=== PATIENT | male | born 1990 | race Caucasian/White ===

== ENCOUNTER 2025-07-02 22:46 | Emergency (ER) | payer OTHER ==
[~2025-07-02] VITALS: Ht 172.7 cm; Wt 63.5 kg
[2025-07-03] MEDS ORDERED: NAPROXEN250 MG PO (02:02)
== END 2025-07-03 02:17 | disposition home or self-care (01) ==
LOC: ED 22:46
DX: S00.93XA Contusion of unspecified part of head, initial encounter (principal); M25.562 Pain in left knee; M54.50 Low back pain, unspecified; V86.56XA Driver of dirt bike or motor/cross bike injured in nontraffic accident, initial encounter; Y93.89 Activity, other specified; Y92.410 Unspecified street and highway as the place of occurrence of the external cause; Y99.8 Other external cause status